=== PATIENT | female | born 1980 | race African-American/Black ===

== ENCOUNTER 2019-10-01 18:13 | Emergency (ER) | payer SELFPAY ==
[~2019-10-01] VITALS: Ht 162.6 cm; Wt 51.0 kg
[~2019-10-01 18:13] MED LIST: PREN-55 PO
[2019-10-01 18:33] VITALS: BP 139/81
== END 2019-10-01 23:30 | disposition left against medical advice (07) ==
LOC: ER 18:13
DX: Z53.21 Procedure and treatment not carried out due to patient leaving prior to being seen by health care provider (principal); F17.200 Nicotine dependence, unspecified, uncomplicated; Z88.0 Allergy status to penicillin

== ENCOUNTER 2024-06-30 12:27 | Emergency (ER) | payer MEDICAID ==
[~2024-06-30] VITALS: Ht 167.6 cm; Wt 72.6 kg
[2024-06-30 12:29] VITALS: PULSE 89; O2SAT 98
[2024-06-30 12:32] VITALS: BP 110/93; RESP 16; TEMP 98.3; O2SAT 100
[2024-06-30] MEDS ORDERED: MUPI1OIN4 TP (13:50)
== END 2024-06-30 15:13 | disposition home or self-care (01) ==
LOC: ER 12:27
DX: L73.9 Follicular disorder, unspecified (principal); Z88.0 Allergy status to penicillin
CPT/HCPCS: 81025; 99283

== ENCOUNTER 2024-09-06 14:07 | Emergency (ER) | payer MEDICAID ==
[~2024-09-06] VITALS: Ht 167.6 cm; Wt 66.0 kg
[~2024-09-06 14:07] MED LIST changes: +MUPI1OIN4 TP
[2024-09-06 14:11] VITALS: O2SAT 99
[2024-09-06 14:15] VITALS: BP 126/84; PULSE 79; RESP 18; TEMP 98.3; O2SAT 100
== END 2024-09-06 17:44 | disposition left against medical advice (07) ==
LOC: ER 14:14
DX: S60.452A Superficial foreign body of right middle finger, initial encounter (principal); S60.412A Abrasion of right middle finger, initial encounter; F12.90 Cannabis use, unspecified, uncomplicated; I10 Essential (primary) hypertension; Z88.0 Allergy status to penicillin; X58.XXXA Exposure to other specified factors, initial encounter; Y93.89 Activity, other specified; Y92.89 Other specified places as the place of occurrence of the external cause; Y99.8 Other external cause status
CPT/HCPCS: 99281